=== PATIENT | male | born 1950 | race Caucasian/White ===

== ENCOUNTER 2020-09-16 18:47 | Emergency (ER) | payer OTHER ==
[2020-09-16 19:07] VITALS: BP 120/71; PULSE 58; TEMP 98; BMI 23.0
== END 2020-09-16 20:36 | disposition home or self-care (01) ==
LOC: FER 18:47
DX: H92.01 Otalgia, right ear (principal)
CPT/HCPCS: 99283-25

== ENCOUNTER 2022-04-27 16:51 | Emergency (ER) | payer OTHER ==
[2022-04-27 17:08] VITALS: BP 137/77; PULSE 55; TEMP 98.5; BMI 22.6
[2022-04-27 18:48] LABS: HEMATOCRIT 42.6 % (35.4-49); HEMOGLOBIN 14.7 G/dL (11.7-16.9); MCH 34.4 pg (25.7-33.7); MCHC 34.6 g/dl (32.0-35.9); MEAN CELL VOLUME 99.6 fl (80-96); MEAN PLT VOLUME 7.6 fl (7.5-11.1); PLATELET COUNT 267.9 10^3/uL (134-434); RBC 4.28 10^6/uL (4.00-5.60); RDW 14.2 % (11.9-15.9); WHITE BLOOD COUNT 8.3 10^3/uL (4.0-10.8)
[2022-04-27 18:52] LABS: PLATELET ESTIMATE ADEQUATE
[2022-04-27 19:08] LABS: ALBUMIN 3.8 g/dl (3.4-5.0); BILIRUBIN,TOTAL 0.4 mg/dl (0.2-1); CALCIUM 9.4 mg/dl (8.5-10); CREATININE 1.2 mg/dl (0.55-1.3); TOT PROT 6.6 g/dl (6.4-8.2)
== END 2022-04-27 20:20 | disposition home or self-care (01) ==
LOC: FER 16:51
DX: R10.30 Lower abdominal pain, unspecified (principal)
CPT/HCPCS: 36415; 74176-TC; 80053; 81003; 81015; 85025; 87086; 99284-25

== ENCOUNTER 2023-02-24 08:04 | Emergency (ER) | payer OTHER ==
[2023-02-24] MEDS ORDERED: ACETAMINOPHEN 1000 MG/100 ML BAG IVPB ONE (08:13)
[2023-02-24] MEDS ORDERED: SODIUM CHLORIDE 0.9% 1000 ML INFUS.BAG IV ONE (08:13)
[2023-02-24] MEDS ORDERED: FAMOTIDINE 20 MG/50 ML IVPB 20 MG/50 ML MG IVPB ONE ×2 (08:14→08:24)
[2023-02-24] MEDS ORDERED: ACETAMINOPHEN INJECTION 100 ML IVPB ONE (08:25)
[2023-02-24 08:44] VITALS: RESP 18; BMI 22.8
[2023-02-24 08:56] LABS: INR 1.08 (0.83-1.09); PROTHROMBIN TIME (PATIENT) 12.4 SEC (9.7-13.0)
[2023-02-24 09:01] LABS: HEMATOCRIT 47.4 % (35.4-49); HEMOGLOBIN 15.8 G/dL (11.7-16.9); MCH 33.5 pg (25.7-33.7); MCHC 33.3 g/dl (32.0-35.9); MEAN CELL VOLUME 100.7 fl (80-96); MEAN PLT VOLUME 9.1 fl (7.5-11.1); PLATELET COUNT 281.1 10^3/uL (134-434); RBC 4.71 10^6/uL (4.00-5.60)
[2023-02-24 09:06] LABS: ALBUMIN 4.2 g/dl (3.4-5.0); BILIRUBIN,TOTAL 0.7 mg/dl (0.2-1); CREATININE 1.5 mg/dl (0.55-1.3); POTASSIUM 4.1 mmol/L (3.5-5.1); TOT PROT 7.4 g/dl (6.4-8.2)
[2023-02-24 12:49] VITALS: BP 140/70; PULSE 66; TEMP 99.2
[2023-02-24] MEDS ORDERED: KETOROLAC TROMETHAMINE 30 MG/1 ML VIAL IVPUSH ONE (13:05)
[2023-02-24] MEDS ORDERED: KETOROLAC TROMETHAMINE 30 MG/1 ML VIAL ONE (13:10)
== END 2023-02-24 13:19 | disposition home or self-care (01) ==
LOC: FER 08:04
PROC: 3E033GC Introduction of Other Therapeutic Substance into Peripheral Vein, Percutaneous Approach (ICD-10-PCS; principal; 2023-02-24)
PROC: 3E033NZ Introduction of Analgesics, Hypnotics, Sedatives into Peripheral Vein, Percutaneous Approach (ICD-10-PCS; 2023-02-24)
PROC: 3E033GC Introduction of Other Therapeutic Substance into Peripheral Vein, Percutaneous Approach (ICD-10-PCS; 2023-02-24)
PROC: 3E0333Z Introduction of Anti-inflammatory into Peripheral Vein, Percutaneous Approach (ICD-10-PCS; 2023-02-24)
DX: R10.9 Unspecified abdominal pain (principal); K59.09 Other constipation; R14.0 Abdominal distension (gaseous); Z20.822 Contact with and (suspected) exposure to COVID-19
CPT/HCPCS: 0241U-QW; 36415; 74177-TC; 80053; 85027; 85610; 86850; 86900; 86901; 99285-25; Q9967